=== PATIENT | female | born 2000 | race Caucasian/White ===

== ENCOUNTER 2024-05-01 08:39 | Outpatient (CLI) | payer OTHER ==
[2024-05-01 10:48] LABS: #Basophils 0.04 10x3/uL (0.0-0.2); #Eosinophils Less than 0.03 10x3/uL (0.0-0.7); %Basophils 0.6 % (0.0-1.0); %Lymphocytes 29.4 % (21.0-51.0); %Monocytes 5.7 % (0.0-10.0); Hematocrit 47.9 % (36.0-47.0); Hemoglobin 15.3 g/dL (12.0-16.0); Mean Corpuscular HGB CONC 31.9 g/dL (32.0-36.0); Mean Corpuscular Hemoglobin 27.2 pg (27.0-31.0); Mean Corpuscular Volume 85.1 fL (78.0-98.0); Mean Platelet Volume 11.2 fL (7.4-10.4); Platelet Count 357 10x3/uL (130-400); RBC Distribution Width 13.2 % (11.5-14.5); Red Blood Cell (RBC) Count 5.63 mill/uL (4.20-5.40)
[2024-05-01 10:57] LABS: BHCG - Serum Negative (NEGATIVE); Pregs Control Background? CLEAR/WHITE (CLR/WHITE); Pregs Control Bar Appear? YES (CONTROL BAR)
[2024-05-01 11:00] LABS: Bilirubin Negative (Negative); Blood, Urine Negative (Negative); Clarity Turbid (Clear); Glucose, Urine (Dipstick) Normal (Negative); Ketone, Urine Negative (Negative); Leukocyte 500 Leu/uL (Negative); Nitrite Negative (Negative); Protein, Urine (Dipstick) Negative (Neg-Trace); RBC/HPF 0-3 HPF (0-3); Specific Gravity, Urine 1.019 (1.002-1.036); Urobilinogen Normal mg/dL (Less than 2)
[2024-05-01 11:01] LABS: Prothrombin Time 13.1 sec (12.0-14.7)
[2024-05-01 11:02] LABS: PTT 31.4 sec (22.9-36.1)
[2024-05-01 11:02] LABS: Bacteria/HPF 1+ HPF (None Seen)
[2024-05-01 11:08] LABS: Anion Gap 13 mmol/L (10-20); BUN (Urea Nitrogen) 11 mg/dL (7.0-18.7); Calc. Creatinine Clearance 0 mL/min (70-130); Calcium 9.6 mg/dL (7.8-10.44); Carbon Dioxide 25 mmol/L (22-29); Chloride 103 mmol/L (98-107); Estimated GFR 103; Glucose 91 mg/dL (70-105); Potassium 3.8 mmol/L (3.5-5.1); Sodium 137 mmol/L (136-145)
== END 2024-05-01 08:40 | disposition home or self-care (01) ==
LOC: LABBT 08:39
PROVIDERS: ATTEND Urology
DX: Z01.818 Encounter for other preprocedural examination (principal); N20.0 Calculus of kidney; N39.0 Urinary tract infection, site not specified
CPT/HCPCS: 80048; 81001; 84703; 85025; 85610; 85730; 87086; 93005; 93010

== ENCOUNTER 2024-05-11 09:03 | Day surgery (SDC) | payer OTHER ==
[2024-05-01 08:45] VITALS: BMI 41.1
[2024-05-11] MEDS ORDERED: Midazolam HCl 2 mg/2 ml Vial ONE ×2 (11:04→11:42)
[2024-05-11] MEDS ORDERED: Sodium Chloride 0.9% 100 ML ONE (11:04)
[2024-05-11] MEDS ORDERED: cefTRIAXone (ROCEPHIN) 1 GM VIAL ONE (11:04)
[2024-05-11] MEDS ORDERED: Lidocaine 2% PF 5 ML VIAL ONE (11:42)
[2024-05-11] MEDS ORDERED: Lidocaine 2% PF 100 mg/5 ml Syringe ONE (11:42)
[2024-05-11] MEDS ORDERED: Ondansetron PF 4 MG/2 ML Vial ONE (11:42)
[2024-05-11] MEDS ORDERED: Dexamethasone 20 MG/5 ML VIAL ONE (11:42)
[2024-05-11] MEDS ORDERED: PROPOFOL 20 ML ONE (11:42)
[2024-05-11] MEDS ORDERED: fentaNYL PF 100 MCG/2 ML SYRINGE ONE ×2 (11:43→13:04)
[2024-05-11] MEDS ORDERED: SUGAMMADEX SODIUM 200 MG/2 ML VIAL ONE (12:24)
[2024-05-11] MEDS ORDERED: Ketorolac Tromethamine 30 MG (1 mL) VIAL ONE (12:30)
[2024-05-11] MEDS ORDERED: Oxybutynin 5 MG TAB ONE (12:47)
[2024-05-11] MEDS ORDERED: Phenazopyridine HCl 100 MG TAB ONE (12:47)
[2024-05-11] MEDS ORDERED: Promethazine HCl 25 MG/ML VIAL ONE (13:14)
== END 2024-05-11 14:45 | disposition home or self-care (01) ==
LOC: SDC 09:03
PROVIDERS: ATTEND Urology
PROC: 0TJ98ZZ Inspection of Ureter, Via Natural or Artificial Opening Endoscopic (ICD-10-PCS; principal; 2024-05-11)
DX: N13.70 Vesicoureteral-reflux, unspecified (principal); N39.0 Urinary tract infection, site not specified; F41.9 Anxiety disorder, unspecified; F32.A Depression, unspecified; Z87.442 Personal history of urinary calculi; Z88.0 Allergy status to penicillin; Z88.1 Allergy status to other antibiotic agents; Z79.1 Long term (current) use of non-steroidal anti-inflammatories (NSAID); Z79.899 Other long term (current) drug therapy
CPT/HCPCS: J0696; J1100; J1885; J2003; J2250; J2405; J2550; J2704